=== PATIENT | male | born 2000 | race Caucasian/White ===

== ENCOUNTER 2023-08-02 09:46 | Day surgery (SDC) | payer OTHER ==
[~2023-08-02] VITALS: Ht 175.3 cm; Wt 95.3 kg
[2023-08-02] MEDS ORDERED: PROPOFOL 200 MG/20 ML VIAL IV ONE ×4 (11:00→12:12)
[2023-08-02] MEDS ORDERED: MIDAZOLAM 2 MG/2 ML VIAL ONE (11:09)
== END 2023-08-02 13:50 | disposition home or self-care (01) ==
LOC: MDS 09:46 → MMU 09:49 → MDS 13:50
PROVIDERS: ATTEND Internal Medicine Gastroenterology
DX: K30 Functional dyspepsia (principal); K31.89 Other diseases of stomach and duodenum; I10 Essential (primary) hypertension; K21.9 Gastro-esophageal reflux disease without esophagitis; F41.9 Anxiety disorder, unspecified
CPT/HCPCS: 43239; J2250; J2704; J7120; 88305; 88312; 88313; 88342

== ENCOUNTER 2023-09-07 13:57 | Emergency (ER) | payer OTHER ==
[~2023-09-07] VITALS: Ht 175.3 cm; Wt 96.6 kg
[2023-09-07 14:24] VITALS: BP 139/82; PULSE 86; RESP 18; TEMP 98.8; O2SAT 99
[2023-09-07] MEDS ORDERED: IBUPROFEN 400 MG TAB PO ONE (18:25)
[2023-09-07] MEDS ORDERED: DICYCLOMINE 10 MG CAP PO ONE (18:25)
[2023-09-07] MEDS ORDERED: ACETAMINOPHEN EXTRA STRENGTH 500 MG TAB PO ONE (18:25)
[2023-09-07] MEDS ORDERED: IBUPROFEN 400 MG TAB ONE (19:54)
[2023-09-07] MEDS ORDERED: DICYCLOMINE 10 MG CAP ONE ×2 (19:54→19:56)
[2023-09-07] MEDS ORDERED: ACETAMINOPHEN 325 MG TAB ONE (19:55)
[2023-09-07 20:02] VITALS: BP 128/78; PULSE 82; RESP 16; TEMP 98.8; O2SAT 99
== END 2023-09-07 20:02 | disposition home or self-care (01) ==
LOC: MED 13:57
DX: K58.9 Irritable bowel syndrome, unspecified (principal); F41.9 Anxiety disorder, unspecified; I10 Essential (primary) hypertension
CPT/HCPCS: 99284

== ENCOUNTER 2024-07-15 22:28 | Emergency (ER) | payer OTHER ==
[~2024-07-15] VITALS: Ht 175.3 cm; Wt 98.4 kg
[2024-07-15 22:40] VITALS: O2SAT 98
[2024-07-15 22:48] VITALS: BP 149/93; PULSE 80; RESP 20; TEMP 98.3; O2SAT 100
[2024-07-15] MEDS: ENALAPRILAT 2.5 MG/2 ML VIAL IVP ONE (23:51)
[2024-07-15 23:53] LABS: BASOPHILS % (AUTO) 0.5 % (0.0-2.0); EOSINOPHILS # (AUTO) 0.1 K/uL (0-0.4); EOSINOPHILS % (AUTO) 0.8 % (0.0-4.0); HEMATOCRIT 44.5 % (36-52); HEMOGLOBIN 15.3 g/dL (12.0-18.0); LYMPHOCYTES # (AUTO) 2.4 K/uL (2.0-11.5); LYMPHOCYTES % (AUTO) 26.3 % (20.5-51.1); MEAN CORPUSCULAR HEMOGLOBIN 29 pg (27-31); MEAN CORPUSCULAR HGB CONC 34 g/dL (33-37); MEAN CORPUSCULAR VOLUME 84.2 fL (80-94); MONOCYTES # (AUTO) 0.8 K/uL (0.8-1.0); MONOCYTES % (AUTO) 8.5 % (1.7-9.3); NEUTROPHILS # (AUTO) 5.9 K/uL (1.8-7.7); NEUTROPHILS % (AUTO) 63.9 % (42.2-75.2); PLATELET COUNT (AUTO) 283 K/uL (140-450); RED BLOOD CELL COUNT(AUTO) 5.28 MIL/uL (4.20-6.10); RED CELL DISTRIBUTION WIDTH 13.1 % (11.6-13.7); WHITE BLOOD COUNT (AUTO) 9.3 K/uL (4.8-10.8)
[2024-07-16 00:13] LABS: CALCIUM 9.5 mg/dL (8.5-10.1); CREATININE 0.8 mg/dL (0.6-1.3)
[2024-07-16 00:23] LABS: ALANINE AMINOTRANSFERASE 46 U/L (12-78); ALBUMIN 4.4 g/dL (3.4-5.0); ALKALINE PHOSPHATASE 71 U/L (50-136); ASPARTATE AMINOTRANSFERASE 29 U/L (15-37); BILIRUBIN,DIRECT 0.1 mg/dL (0.0-0.3); TOTAL BILIRUBIN 0.3 mg/dL (0.0-1.0)
[2024-07-16 00:55] VITALS: O2SAT 100
[2024-07-16] MEDS ORDERED: LOSA50TA66 PO (02:43)
[2024-07-16 02:55] VITALS: O2SAT 100
[2024-07-16 02:56] VITALS: BP 108/59; PULSE 62; RESP 16; TEMP 98.3; O2SAT 100
== END 2024-07-16 02:57 | disposition home or self-care (01) ==
LOC: MED 22:28
DX: I10 Essential (primary) hypertension (principal)
CPT/HCPCS: 36415; 71045; 80048; 80076; 83880; 84484; 85025; 85379; 93005; 96374; 99285; J3490; Q0092